=== PATIENT | female | born 1980 | race Caucasian/White ===

== ENCOUNTER → 2019-06-19 | Outpatient (CLI) | payer BC, OTHER ==
--- NOTE | 2019-06-21 14:25 | Diagnostic Imaging Report ---
INDICATION: Routine screening. COMPARISON: Comparison is made with prior mammograms from 01/01/2016 and 06/03/2014. 2-D and 3-D bilateral screening mammography was performed. The current study was also evaluated with a Computer Aided Detection (CAD) system. 3-D tomosynthesis was also performed and reviewed. FINDINGS: Both breasts are heterogeneously dense, limiting the sensitivity of mammography. There is a cluster of calcifications in the upper and outer aspect of the right breast posterior depth which appear more prominent than prior exam. Additional views are recommended. Left breast is unremarkable. No discrete mass is seen. Axillae are unremarkable. IMPRESSION: Cluster of microcalcifications in upper outer right breast. Additional views are recommended for further evaluation. ACR BI-RADS Category 0: Incomplete. (Needs additional imaging evaluation). Result letter will be mailed to the patient. Note: At least 10% of breast cancer is not imaged by mammography. Dictated by: Dictated on workstation # [id number]
== END ==
LOC: RAD 08:48
PROVIDERS: ATTEND Internal Medicine
DX: Z12.31 Encounter for screening mammogram for malignant neoplasm of breast (principal); D64.9 Anemia, unspecified
CPT/HCPCS: 77067

== ENCOUNTER → 2019-07-20 | Outpatient (CLI) | payer BC ==
--- NOTE | 2019-07-20 13:53 | Diagnostic Imaging Report ---
INDICATION: Right breast calcifications. Patient presents for additional views. COMPARISON: Correlation is made with recent screening study from 06/19/2019. TECHNIQUE: Unilateral right 2-D and 3-D diagnostic mammography was performed. This includes magnification CC and ML views as well as conventional 90 degree lateral views. The current study was also evaluated with a Computer Aided Detection (CAD) system. 3-D tomosynthesis was also performed and reviewed. FINDINGS: Additional views demonstrate a cluster of microcalcifications in the upper and outer aspects of the right breast at posterior depth. These appear to be round and somewhat less defined on the CC view. These demonstrate fluid-fluid levels on the lateral view and features are most consistent with milk of calcium calcifications. No mass is seen. IMPRESSION: Milk of calcium calcifications in the upper-outer right breast. Patient may return to routine annual screening mammography. ACR BI-RADS Category 2: Benign findings. Result letter will be mailed to the patient. Note: At least 10% of breast cancer is not imaged by mammography. Dictated by: Dictated on workstation # [id number]
== END ==
LOC: RAD 12:44
PROVIDERS: ATTEND Internal Medicine
DX: R92.0 Mammographic microcalcification found on diagnostic imaging of breast (principal)

== ENCOUNTER 2020-04-16 05:36 | Outpatient (RCR) | payer BC ==
[~2020-04-16] VITALS: Ht 165 cm; Wt 80.0 kg
[~2020-04-16 05:36] MED LIST: LORA10TA7 PO; TOPI50TA37 PO
== END 2020-04-16 10:04 | disposition home or self-care (01) ==
LOC: PREOP 05:36
PROVIDERS: ATTEND Surgery
DX: Z01.812 Encounter for preprocedural laboratory examination (principal); Z20.828 Contact with and (suspected) exposure to other viral communicable diseases
CPT/HCPCS: 87635

== ENCOUNTER 2020-04-18 10:04 | Day surgery (SDC) | payer BC ==
[~2020-04-18] VITALS: Ht 165 cm; Wt 80.0 kg
[2020-04-18] MEDS ORDERED: LACTATED RINGERS 1,000 ML IV STA (10:07)
[2020-04-18] MEDS ORDERED: LACTATED RINGERS 1,000 ML IV ONE (10:10)
[2020-04-18 10:42] VITALS: BP 123/83
[2020-04-18] MEDS ORDERED: PROPOFOL INJECTION 50 ML IV ONE (10:51)
[2020-04-18] MEDS ORDERED: MIDAZOLAM 2 MG/2 ML (VERSED) VIAL ONE (10:51)
--- NOTE | 2020-04-18 10:54 | Progress Note-Pre Operative ---
Pre-Operative Progress Note H&P Reviewed The H&P was reviewed, patient examined and no changes noted. Date Seen by Provider: Apr 18, 2020 Time Seen by Provider: 10:53 Date H&P Reviewed: Apr 18, 2020 Time H&P Reviewed: 10:53 Pre-Operative Diagnosis: change in bowel habits, r/o celiac ZACK AMBRIZ DO Apr 18, 2020 10:54
[2020-04-18] MEDS ORDERED: HURRICAINE EXT TUBE (BENZOCAINE) ONE (10:56)
[2020-04-18] MEDS ORDERED: proPOfol 200 MG/20 ML (DIPRIVAN) VIAL IV ONE (11:11)
[2020-04-18 11:30] VITALS: BP 98/64
[2020-04-18 11:35] VITALS: BP 102/51
[2020-04-18 12:00] VITALS: BP 115/83
[2020-04-18 12:15] VITALS: BP 115/83
--- NOTE | 2020-04-19 05:33 | OPERATIVE REPORT ---
DATE OF SERVICE: 04/18/2020 PREOPERATIVE DIAGNOSIS: Change in bowel habits, rule out celiac disease. POSTOPERATIVE DIAGNOSES: Small hiatal hernia, normal colon. PROCEDURE: EGD with biopsies, colonoscopy with random cold biopsies. SURGEON: Zack Manuel DO ANESTHESIA: Per [employer]. ESTIMATED BLOOD LOSS: Scant. COMPLICATIONS: None. INDICATIONS: The patient is a 39-year-old female who has change in bowel habits and asked to rule out celiac disease. She understands risks and benefits of procedures and wished to proceed with procedures. Consent was signed in the chart. DESCRIPTION OF PROCEDURE: The patient was taken to the endoscopy suite, placed in left lateral recumbent position. Timeout was performed. Scope was inserted in mouth, down the esophagus, stomach and into the duodenum without difficulty. There were no polyps, masses or ulcerations within the duodenum. Biopsy of the duodenum was performed. Scope was then slowly retracted back into the stomach where it was further insufflated. There were no polyps, masses or ulcerations. No significant erythematous changes. Biopsy of the antrum was obtained. Scope was retroflexed noting a small hiatal hernia, no other pathology. Scope was returned to its normal position, slowly withdrawn to distal esophagus. Biopsy of the GE junction was obtained. There were no palpable polyps, masses or ulcerations. Scope was then slowly retracted back to completely remove noting no other pathology. Digital rectal exam was performed. No palpable polyps, masses or ulcerations. Scope was inserted in the rectum and advanced all the way to cecum with minimal difficulty. Prep was adequate. Scope was then slowly retracted back. The terminal ileum was intubated, which had normal appearance. Scope was retracted back into the colon. Cecum had no polyps, masses or ulcerations. Scope was then continuously retracted back. No polyps, masses or ulcerations within the remainder of the ascending, transverse, descending and sigmoid colon. As scope was being withdrawn, some random cold biopsies were obtained. No polyps, masses or ulcerations within the sigmoid and rectum and the scope was then retroflexed in the rectum with no other pathology noted. Scope was returned to its normal position, slowly withdrawn until completely removed. The patient tolerated procedure well without any complications. She was taken to recovery room in stable condition. RECOMMENDATIONS: The patient will follow up in the office in two to three weeks. Any issues before be seen at that time. The patient will need repeat colonoscopy per routine screening guidelines. We will await pathology results to make any changes. Job ID: [id number] DocumentID: [id number] Dictated Date: 04/18/2020 20:15:32 Steamer Tender Date: 04/19/2020 05:32:40 Dictated By: ZACK MANUEL DO
== END 2020-04-18 12:15 | disposition home or self-care (01) ==
LOC: ENDO 10:04
PROVIDERS: ATTEND Surgery
DX: K29.50 Unspecified chronic gastritis without bleeding (principal); K44.9 Diaphragmatic hernia without obstruction or gangrene; K21.0 Gastro-esophageal reflux disease with esophagitis; K52.9 Noninfective gastroenteritis and colitis, unspecified; I10 Essential (primary) hypertension; F41.9 Anxiety disorder, unspecified; Z79.899 Other long term (current) drug therapy; Z88.0 Allergy status to penicillin; Z88.1 Allergy status to other antibiotic agents; Z88.5 Allergy status to narcotic agent
CPT/HCPCS: 84703; 88305

== ENCOUNTER 2020-05-07 14:05 | Outpatient (RCR) | payer BC | END 2020-08-05 | disposition home or self-care (01) | LOC: LAB 14:05 | PROVIDERS: ATTEND Surgery | DX: Z01.812 Encounter for preprocedural laboratory examination (principal) | CPT/HCPCS: 87015; 87045; 87046; 87328; 87329; 87899 ==

== ENCOUNTER → 2020-08-12 | Outpatient (CLI) | payer OTHER ==
--- NOTE | 2020-08-12 21:13 | Diagnostic Imaging Report ---
Digital mammogram bilateral screening. COMPARISON: This study was compared to the prior exams of 06/19/2019 and 01/01/2016. At this time, there are no current complaints. The fibroglandular tissue in both breasts is heterogeneously dense. This does limit the sensitivity of this exam. On the MLO view of the right breast in the superior aspect of the breast approximately 8 cm deep to the nipple there are again noted calcific-like densities layering in the superior aspect of the breast. These findings are not as conspicuous on the craniocaudad view and are felt to be secondary to milk of calcium. The overall appearance of the breasts has not changed significantly otherwise. There is no primary or secondary sign of malignancy noted. IMPRESSION: 1. There is no evidence for malignancy. ACR category 1 ACR BI-RADS Category 1: Negative. Result letter will be mailed to the patient. Note: At least 10% of breast cancer is not imaged by mammography. Dictated by: Dictated on workstation # [id number]
== END ==
LOC: RAD 13:25
PROVIDERS: ATTEND Internal Medicine
DX: Z12.31 Encounter for screening mammogram for malignant neoplasm of breast (principal)
CPT/HCPCS: 77063; 77067

== ENCOUNTER → 2021-08-17 | Outpatient (CLI) | payer BC ==
--- NOTE | 2021-08-17 09:37 | Diagnostic Imaging Report ---
PROCEDURE: US Thyroid. TECHNIQUE: Multiple real-time grayscale images were obtained of the thyroid in various projections. INDICATION: Thyroid nodule. No prior studies are available for comparison. Right lobe thyroid measures 5.8 x 2.6 x 2.1 cm, left lobe measures 5.2 x 1.4 x 1.5 cm. Isthmus is 4 mm in thickness. There is a complex mixed solid and cystic mass involving the right lobe of the thyroid measuring 2.9 x 2.4 x 1.9 cm. Left lobe contains a small hypoechoic nodule in upper pole approximately 7 mm in size. No other masses are detected. IMPRESSION: Dominant mixed solid and cystic mass right lobe of thyroid. Fine-needle aspiration would be recommended. Dictated by: Dictated on workstation # [id number]
--- NOTE | 2021-08-17 10:56 | Diagnostic Imaging Report ---
INDICATION: Routine screening Comparison is made with prior mammogram from 08/12/2020 and 06/19/2019. 2-D and 3-D bilateral screening mammography was performed with CAD. Both breasts remain heterogeneously dense, limiting the sensitivity of mammography. The layering calcifications in the posterior and upper right breast on the MLO view appear to be stable and again are likely owing to milk of calcium. No mass or malignant appearing microcalcifications are seen. Axillae are unremarkable. IMPRESSION: No mammographic features suspicious for malignancy are identified. BI-RADS Category 2 ACR BI-RADS Category 2: Benign findings. Result letter will be mailed to the patient. Note: At least 10% of breast cancer is not imaged by mammography. Dictated by: Dictated on workstation # [id number]
== END ==
LOC: RAD 09:00
PROVIDERS: ATTEND Internal Medicine
DX: Z12.31 Encounter for screening mammogram for malignant neoplasm of breast (principal); E04.1 Nontoxic single thyroid nodule
CPT/HCPCS: 76536; 77063; 77067

== ENCOUNTER → 2021-11-13 | Outpatient (CLI) | payer BC ==
[~2021-11-13] VITALS: Ht 165.1 cm; Wt 81.8 kg
[~2021-11-13] MED LIST changes: +LIDOCAINE 1% INJ 20 ML VIAL INJ ONE
--- NOTE | 2021-11-13 10:42 | Diagnostic Imaging Report ---
INDICATION: Right thyroid nodule. PROCEDURE: The patient presents for ultrasound-guided fine needle aspiration and biopsy. The patient was brought to the procedure room and placed on the table in the supine position. Ultrasound imaging of the right neck was performed to evaluate appropriate entry site. The right neck was then prepped and draped in the usual sterile fashion. A small amount of 1% lidocaine was utilized for local anesthesia. A total of 4 passes were made into the mixed solid and cystic mass, right lobe of the thyroid, utilizing 25-gauge needles and fine-needle aspiration technique. A single pass was made with a Rotex needle and a Rotex biopsy was performed. Hemostasis was obtained. The patient tolerated the procedure well and left the department in stable condition. IMPRESSION: Successful right lobe thyroid mass fine needle aspiration and Rotex biopsy. Pathology results are currently pending. Dictated by: Dictated on workstation # [id number]
== END ==
LOC: RAD 08:57
PROVIDERS: ATTEND Otolaryngology Otolaryngology/Facial Plastic Surgery
DX: E04.1 Nontoxic single thyroid nodule (principal)
CPT/HCPCS: 10005

== ENCOUNTER → 2022-02-10 | Outpatient (CLI) | payer BC ==
[~2022-02-10] MED LIST changes: -LIDOCAINE 1% INJ 20 ML VIAL INJ ONE
--- NOTE | 2022-02-10 17:44 | Diagnostic Imaging Report ---
PROCEDURE: US Non-ob pelvis comp/trans. TECHNIQUE: Multiple realtime grayscale images were obtained of the pelvis in various projections endovaginally. Transabdominal imaging was also performed. INDICATION: Pelvic pain. FINDINGS: The body of the uterus measures 9.2 x 5.8 x 6 cm. There is a large pedunculated appearing heterogeneous mass off of the right side of the uterus measuring 7 cm. This does show some vascularity. Endometrial stripe is 7 mm. The right ovary was obscured by the large mass extending into the right adnexa. The left ovary measures 4 x 2.2 x 3 cm. Left ovary appears normal with normal blood flow. There is no free fluid. IMPRESSION: Large heterogeneous mass felt most likely to be uterine in origin and would represent a fibroid though cannot totally exclude other etiologies such as right ovarian origin. I would consider a MRI of the pelvis with and without IV gadolinium for further characterization. Dictated by: Dictated on workstation # [id number]
== END ==
LOC: RAD 13:02
PROVIDERS: ATTEND Internal Medicine
DX: R19.00 Intra-abdominal and pelvic swelling, mass and lump, unspecified site (principal)
CPT/HCPCS: 76830; 76856

== ENCOUNTER → 2022-05-28 | Outpatient (CLI) | payer BC ==
--- NOTE | 2022-05-28 15:46 | Diagnostic Imaging Report ---
PROCEDURE: US Thyroid. TECHNIQUE: Multiple real-time grayscale images were obtained of the thyroid in various projections. INDICATION: Follow-up thyroid nodules COMPARISON: 08/17/2021 FINDINGS: Right thyroid lobe: Size (cm): 6.0 x 2.2 x 2.6 Echotexture: Background is normal Vascularity: Normal Nodules: There is an extensive solid and cystic nodule in the right thyroid which measures up to 2.6 cm in size, compared to 2.9 cm previously. This was previously biopsied. There is a cystic 3 mm nodule in the superior right thyroid. Isthmus: Size (cm): 0.2 Nodules: None Left thyroid lobe: Size (cm): 4.9 x 1.4 x 1.4 Echotexture: Normal Vascularity: Normal Nodules: There is an isoechoic 6 mm nodule in the superior left thyroid. Impression: 1. Slightly decreased size of the large TI-RADS 3 nodule in the right thyroid which was previously biopsied. 2. Other subcentimeter nodules do not qualify for follow-up based on TI-RADS criteria. Dictated by: Dictated on workstation # [id number]
== END ==
LOC: RAD 09:21
PROVIDERS: ATTEND Otolaryngology Otolaryngology/Facial Plastic Surgery
DX: E04.2 Nontoxic multinodular goiter (principal)
CPT/HCPCS: 76536

== ENCOUNTER → 2022-05-28 | Outpatient (CLI) | payer BC ==
[~2022-05-28] MED LIST changes: +GADOTERATE 0.5 MMOL/ML (CLARISCAN) 20 ML VIAL IV ONE
--- NOTE | 2022-05-28 14:58 | Diagnostic Imaging Report ---
Procedure: MR imaging abdomen with and without contrast. Technique: Multiplanar, multisequence MR imaging of the abdomen was performed with and without contrast. Date: May 28, 2022. Indication: 41-year-old female, mass in the region of the uterus. Comparison: Pelvic ultrasound February 10, 2022. Findings: There is no diffuse loss of signal in the liver on the out of phase images to suggest diffuse fatty infiltration of the liver. The liver is unremarkable in size and contour. There is no identified liver lesion. The main, right and left portal veins are patent. The gallbladder is absent. There is no intrahepatic or extrahepatic bile duct dilation. The main pancreatic duct is not abnormally dilated. Unremarkable appearance of the pancreatic parenchyma. The spleen is normal in size. The adrenal glands are unremarkable. Unremarkable appearance of the renal parenchyma. There is no hydronephrosis. The intestinal tract is not distended. There is no identified abnormally enlarged lymph node in the abdomen meeting size criteria for adenopathy. Impression: Unremarkable MRI of the abdomen without and with intravenous contrast. Dictated by: Dictated on workstation # [id number]
== END ==
LOC: RAD 09:30
PROVIDERS: ATTEND Obstetrics & Gynecology Female Pelvic Medicine and Reconstructive Surgery
DX: N85.8 Other specified noninflammatory disorders of uterus (principal)
CPT/HCPCS: 72197; 74183

== ENCOUNTER → 2022-09-20 | Outpatient (CLI) | payer BC ==
[~2022-09-20] MED LIST changes: -GADOTERATE 0.5 MMOL/ML (CLARISCAN) 20 ML VIAL IV ONE
--- NOTE | 2022-09-21 09:51 | Diagnostic Imaging Report ---
EXAMINATION: 3D bilateral screening mammogram with CAD. INDICATION: Screening. COMPARISON: This study was compared to the prior exams of 08/17/2021, 08/12/2020, and 06/19/2019. PERSONAL HISTORY: At this time, there are no current complaints. FINDINGS: The fibroglandular tissue in both breasts is dense. This does limit the sensitivity of this exam. As on the previous study, there is evidence of milk of calcium in the upper-outer quadrant of the right breast. This finding seems unchanged. On the tomographic views of the right breast, there is a small 5 mm fairly well-circumscribed nodular asymmetry in the 9 o'clock position at posterior depth. This finding has a generally benign appearance although was not clearly visualized on the prior exam. I would recommend that ultrasound of the right breast be performed to better characterize this asymmetry. The overall appearance of the breasts has not changed significantly otherwise. There is no primary or secondary sign of malignancy noted. IMPRESSION: Ultrasound of the right breast would be recommended for further study. ACR BI-RADS Category 0: Incomplete. (Needs additional imaging evaluation). Result letter will be mailed to the patient. Note: At least 10% of breast cancer is not imaged by mammography. Dictated by: Dictated on workstation # [id number]
== END ==
LOC: RAD 09:48
PROVIDERS: ATTEND Internal Medicine
DX: Z12.31 Encounter for screening mammogram for malignant neoplasm of breast (principal)
CPT/HCPCS: 77063; 77067

== ENCOUNTER → 2022-10-14 | Outpatient (CLI) | payer BC ==
--- NOTE | 2022-10-14 10:57 | Diagnostic Imaging Report ---
INDICATION: Abnormal mammogram. This study is performed for further evaluation. COMPARISON: Correlation is made with the screening mammogram from 09/20/2022. FINDINGS: Sonographic interrogation of the outer right breast was performed. There is a cyst at the 8 o'clock location 5 to 6 cm from the nipple measuring 7 mm x 4 mm x 7 mm. This likely accounts for the mammographic density. No solid lesions are seen. No internal vascularity is identified. IMPRESSION: Simple cyst at the 8 o'clock location of the right breast 5 to 6 cm from the nipple, likely accounting for the mammographic density. The patient may return to routine annual screening mammography. ACR BI-RADS Category 2: Benign findings. Dictated by: Dictated on workstation # [id number]
== END ==
LOC: RAD 09:37
PROVIDERS: ATTEND Internal Medicine
DX: N63.10 Unspecified lump in the right breast, unspecified quadrant (principal)